=== PATIENT | male | born 1975 | race Caucasian/White ===

== ENCOUNTER 2016-07-24 17:11 | Emergency (ER) | payer OTHER ==
[~2016-07-24] VITALS: Ht 185.4 cm; Wt 102.1 kg
[2016-07-24 17:15] VITALS: BP 135/84
--- NOTE | 2016-07-24 19:13 | ED PSYCHIATRIC COMPLAINT ---
History of Present Illness General Chief Complaint: General Adult Stated Complaint: PT IS HAVING PANIC ATTACKS Source: patient Exam Limitations: no limitations Vital Signs & Intake/Output Vital Signs & Intake/Output Vital Signs Date Time Temp Pulse Resp B/P B/P Pulse O2 O2 Flow FiO2 Mean Ox Delivery Rate 07/24 2009 Room Air 07/24 1715 98.4 75 15 135/84 97 Room Air Room Air Allergies Coded Allergies: MDX - Clarithromycin (From BIAXIN) (N/V, NAUSEA 07/24/16) Uncoded Allergies: ANOTHER ABX - CALL SASHA SALAZAR (12/09/11) Reconcile Medications Alprazolam (Xanax) 0.5 MG TABLET 1 TAB PO BIDP PRN anxiety Triage Note: PT TO ED FOR PANIC ATTACKS. HISTORY OF ANXIETY AND DEPRESSION. PT REPORTS INCREASED MEMORY LOSS FOR ABOUT A MONTH, "BUT I JUST STARTED NOTICING IT MORE OFTEN." Triage Nurses Notes Reviewed? yes Duration: week(s): (2-3) Timing: recent history Severity: moderate, severe Associated Symptoms: episodes of memory loss HPI: This is a 40-year-old male with history of depression and anxiety on Wellbutrin 150 mg daily who presents to the ER with chief complaint of increasing anxiety and panic attacks over the past 2-3 weeks. He states that the anxiety and panic are resulted of increasing episodes of memory loss. 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 Denies any illicit drug or alcohol use. He states he tried calling his psychiatrist today but couldn't get into see them. He states the office is very nonresponsive. Today he talked to his therapist and she advised him to come to the ER for evaluation. No headache or blurred vision. He states during the panic episodes he gets very dizzy but is lying to work through them. He used to be on Lexapro which they tapered off because of issues with lethargy and decreased libido. Denies any chest pain or shortness of breath. He states he had a well checkup with a doctor in February. Denies any history of high blood pressure high cholesterol or stroke risk factors. He is a nonsmoker at this time. Positive family history of anxiety and depression. He states that his therapist requested him to also see a neurologist. Patient is currently looking for a new psychiatrist. Past History Travel History Traveled to [place] past 21 day No Medical History Any Pertinent Medical History? see below for history Neurological: NONE EENT: NONE Cardiovascular: NONE Respiratory: NONE Gastrointestinal: NONE Hepatic: NONE Renal: NONE Musculoskeletal: NONE Psychiatric: anxiety, depression Endocrine: NONE Blood Disorders: NONE Cancer(s): NONE MASTIC SPRAYER/Reproductive: NONE Surgical History Surgical History: non-contributory Psychosocial History Who do you live with Spouse What is your primary language Spanish Tobacco Use: Never used ETOH Use: occasional use Illicit Drug Use: denies illicit drug use Family History Comment: MOTHER WITH ANXIETY Hx Contributory? Yes Review of Systems Review of Systems Constitutional: Denies: chills, fever. EENTM: Reports: no symptoms. Respiratory: Denies: cough, short of breath. Cardiovascular: Denies: chest pain. GI: Reports: no symptoms. Genitourinary: Reports: no symptoms. Musculoskeletal: Reports: no symptoms. Skin: Reports: no symptoms. Neurological/Psychological: Reports: anxiety, confusion, depressed, emotional problems. Hematologic/Endocrine: Denies: bleeding. Immunologic/Allergic: Reports: no symptoms. All Other Systems: Reviewed and Negative Physical Exam Physical Exam General Appearance: well developed/nourished, alert, awake, anxious, mild distress, moderate distress Head: atraumatic Eyes: Bilateral: PERRL, EOMI. Ears, Nose, Throat: normal pharynx, normal ENT inspection, hearing grossly normal Neck: normal inspection, supple Respiratory: normal breath sounds Cardiovascular: regular rate/rhythm Gastrointestinal: soft, non-tender Extremities: normal range of motion Neurological/Psychiatric: no motor/sensory deficits, awake, alert, anxious, digital product specialist II-XII nml as tested Appearance/Memory/Insight: appropriate appearance, appropriate insight, neat Behavoir/Eye Contact/Speech: avoids eye contact, cooperative, increased rate of speech Thoughts/Hallucinations: no apparent hallucination Skin: intact, normal color, warm/dry SAD PERSONS Done? patient not suicidal Progress Differential Diagnosis: ANXIETY, PANIC ATTACKS, TIA, SEIZURES Plan of Care: Orders Procedure Date/time Status COMPREHENSIVE METABOLIC PANEL 07/24 1928 Complete CBC WITHOUT DIFFERENTIAL 07/24 1928 Complete Laboratory Tests 07/24/16 2007: Anion Gap 14, Estimated GFR > 60, BUN/Creatinine Ratio 14.2, Glucose 109 H, Calcium 9.7, Total Bilirubin 0.5, AST 19, ALT 38, Alkaline Phosphatase 82, Total Protein 7.9, Albumin 4.6, Globulin 3.3, Albumin/Globulin Ratio 1.4, CBC w Diff NO MAN DIFF REQ, RBC 4.84, MCV 83.8, MCH 29.2, RDW 12.6, MPV 8.0, Gran % 60.4, Lymphocytes % 28.0, Monocytes % 9.0, Eosinophils % 2.3, Basophils % 0.3, Absolute Granulocytes 4.9, Absolute Lymphocytes 2.3, Absolute Monocytes 0.7 H, Absolute Eosinophils 0.2, Absolute Basophils 0, PUBS MCHC 34.8 Patient does not want to speak to crisis but will follow up with outpatient psychiatry. Given small prescription for xanax to only use as needed. (AXEL CHUA,MIC) Diagnostic Imaging: Viewed by Me: CT Scan. Discussed w/RAD: CT Scan. Radiology Impression: PATIENT: KYLE CHAVIS PRESENT AGE: 40 PATIENT ACCOUNT NO: [id number] : 74 LOCATION: [facility] ORDERING PHYSICIAN: MIC REYNA MD SERVICE DATE: 07/24/16 EXAM TYPE: CAT - CT HEAD WO IV CONTRAST EXAMINATION: CT HEAD WITHOUT CONTRAST CLINICAL INFORMATION: Increasing episodes and memory loss over the last few weeks. COMPARISON: None available. TECHNIQUE: Contiguous axial imaging was performed from the skull base to vertex without intravenous administration of contrast. FINDINGS: There is no intracranial hemorrhage, hydrocephalus, extra-axial surface collection, midline shift, or other herniation pattern. Grider to white matter differentiation is diffusely maintained without evidence of an evolved acute territorial infarct. The basilar cisterns are preserved. No significant soft tissue abnormality. No acute osseous abnormality. The paranasal sinuses and the mastoid air cells are well-aerated. Leftward deviation of the nasal septum. IMPRESSION: No acute intracranial abnormality. DICTATED BY: CHAD PRAJAPATI MD DATE/TIME DICTATED:07/24/162003 HYPERBARIC TECH:ISAEL DATE/TIME TRANSCRIBED:07/24/162003 CONFIDENTIAL, DO NOT COPY WITHOUT APPROPRIATE AUTHORIZATION. <Electronically signed in Other Vendor System> SIGNED BY: CHAD PRAJAPATI MD 07/24/162011 Departure Departure Time of Disposition: 2034 Disposition: HOME OR SELF CARE Condition: Stable Clinical Impression Primary Impression: Memory loss Secondary Impressions: Anxiety Referrals: ANDERSON CHUA,MIRLANDE Moreno (PCP/Family) ROSIE CHUA,JOSE Additional Instructions: Continue your Wellbutrin and please follow up with the psychiatry referral. Follow-up with the neurologist listed. Take the Xanax only as needed for panic attacks. Return to the ER for any changing or worsening symptoms. Departure Forms: Customer Survey General Discharge Information Prescriptions: Current Visit Scripts Alprazolam (Xanax) 1 TAB PO BIDP PRN anxiety #10 TAB
[2016-07-24 20:12] LABS: ABSOLUTE BASOPHIL COUNT 0 /CUMM (0.0-0.2); ABSOLUTE EOSINOPHIL COUNT 0.2 /CUMM (0.0-0.7); ABSOLUTE GRANULOCYTE CT 4.9 /CUMM (1.4-6.5); ABSOLUTE LYMPH COUNT 2.3 /CUMM (1.2-3.4); ABSOLUTE MONOCYTE COUNT 0.7 /CUMM (0.10-0.60); BASOPHIL % 0.3 % (0.0-2.0); EOSINOPHIL % 2.3 % (0-5); GRANULOCYTE % 60.4 % (42.2-75.2); HEMATOCRIT 40.5 % (42-52); MEAN CORPUSCULAR HGB 29.2 PG (27.0-31.0); MEAN CORPUSCULAR HGB CONC 34.8 G/DL (33.0-37.0); MEAN CORPUSCULAR VOLUME 83.8 FL (80.0-94.0); PLATELET COUNT 352 /CUMM (130-400); RBC DISTRIBUTION WIDTH 12.6 % (11.5-14.5); RED BLOOD CELL CT 4.84 /CUMM (4.70-6.10); WHITE BLOOD CELL COUNT 8.1 /CUMM (4.8-10.8)
--- NOTE | 2016-07-24 20:12 | CT SCAN REPORT ---
EXAMINATION: CT HEAD WITHOUT CONTRAST CLINICAL INFORMATION: Increasing episodes and memory loss over the last few weeks. COMPARISON: None available. TECHNIQUE: Contiguous axial imaging was performed from the skull base to vertex without intravenous administration of contrast. FINDINGS: There is no intracranial hemorrhage, hydrocephalus, extra-axial surface collection, midline shift, or other herniation pattern. Grider to white matter differentiation is diffusely maintained without evidence of an evolved acute territorial infarct. The basilar cisterns are preserved. No significant soft tissue abnormality. No acute osseous abnormality. The paranasal sinuses and the mastoid air cells are well-aerated. Leftward deviation of the nasal septum. IMPRESSION: No acute intracranial abnormality.
[2016-07-24] MEDS ORDERED: XANAX0.5 M1 PO (20:39)
== END 2016-07-24 20:35 ==
LOC: ERH 17:11
PROVIDERS: Emergency Medicine
DX: R41.3 Other amnesia (principal); F41.9 Anxiety disorder, unspecified